=== PATIENT | male | born 1965 | race Caucasian/White ===

== ENCOUNTER → 2021-12-12 | Outpatient (CLI) | payer BC ==
[2021-12-12 10:45] LABS: ALT 16 U/L (10-49); AST 21 U/L (14-35); Chol/HDL Ratio 3.39 Ratio; LDL Cholesterol,Calculated 70.6 mg/dL (0.0-131.0)
== END | disposition home or self-care (01) ==
LOC: LABWHC1 07:27
PROVIDERS: ATTEND Family Medicine
DX: E78.00 Pure hypercholesterolemia, unspecified (principal); R73.03 Prediabetes
CPT/HCPCS: 36415; 80061; 83036; 84450; 84460

== ENCOUNTER → 2022-12-25 | Outpatient (CLI) | payer BC ==
[2022-12-25 14:36] LABS: ALT 26 U/L (10-49); AST 25 U/L (14-35); Chol/HDL Ratio 2.67 Ratio; LDL Cholesterol,Calculated 67.2 mg/dL (0.0-131.0); VLDL Calculation 17.94 mg/dL (5.00-40.00)
== END | disposition home or self-care (01) ==
LOC: LABWHC1 07:08
PROVIDERS: ATTEND Family Medicine
DX: E78.00 Pure hypercholesterolemia, unspecified (principal); R73.03 Prediabetes
CPT/HCPCS: 36415; 80061; 83036; 84450; 84460

== ENCOUNTER → 2024-06-18 | Outpatient (CLI) | payer BC ==
--- NOTE | 2024-06-18 10:31 | CT ---
EXAMINATION TYPE: CT angio chest, CT angio neck DATE OF EXAM: 06/18/2024 COMPARISON: NONE HISTORY: Occlusion and stenosis of bilateral carotid arteries Automated Exposure Control for Dose Reduction was Utilized. NASCET criteria was used in interpretation of this exam? CONTRAST: CTA scan of the neck and thorax are performed with IV Contrast, patient injected with 50 mL of Isovue 370. . 3D reconstructed images are created on an independent workstation and reviewed. FINDINGS: LUNGS: A few tiny thin-walled cysts are scattered throughout the lung parenchyma bilaterally. No susp icious focal consolidation or concerning masses. There is no pleural effusion or pneumothorax seen. The tracheobronchial tree is patent. MEDIASTINUM: There are no greater than 1 cm hilar or mediastinal lymph nodes. No cardiomegaly or pe ricardial effusion is seen. NECK: Right Carotid System: The common carotid artery and external carotid artery are patent. The carotid bifurcation demonstrate s no evidence of hemodynamically significant stenosis. Mild to moderate peripheral plaque at this lev el is seen. The remaining portions of the internal carotid artery demonstrate slightly diminished siz e or caliber versus opposite left side without significant focal narrowing. Left Carotid System: The common carotid artery and external carotid artery are patent. The carotid bifurcation demonstrate s no evidence of hemodynamically significant stenosis. [id number] peripheral plaque at this lev el is present The remaining portions of the internal carotid artery demonstrate normal size without s ignificant narrowing. Vertebral arteries are patent without evidence hemodynamically significant stenosis. Vertebral arteri es are codominant. There is a three-vessel aortic arch. There is complete occlusion of the left subclavian artery shortl y after its origin over roughly 2.0 cm segment coronal image 53 series 8. Reconstitution distally is likely from reversed flow. Other: No significant abnormality. 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 No hemodynamically signif icant stenosis in either common or internal carotid artery. [facility], , 06/18/2024 10:28 AM
== END | disposition home or self-care (01) ==
LOC: RADCTMAIN 09:09
PROVIDERS: ATTEND Surgery
DX: I65.23 Occlusion and stenosis of bilateral carotid arteries (principal)
CPT/HCPCS: 70498; 71275; Q9967